=== PATIENT | female | born 2000 | race Caucasian/White ===

== ENCOUNTER 2022-06-07 02:10 | Emergency (ER) | payer BC ==
[~2022-06-07] VITALS: Ht 165.1 cm; Wt 59.1 kg
[2022-06-07 02:15] VITALS: TEMP 97.1
[2022-06-07 02:47] LABS: STREP SCREEN NEGATIVE
[2022-06-07] MEDS ORDERED: PRELONE15 MG/5 ML PO (03:27)
[2022-06-07 03:28] VITALS: BP 115/78; PULSE 76
== END 2022-06-07 03:38 | disposition home or self-care (01) ==
LOC: COL.ER 02:10
PROVIDERS: Emergency Medicine
DX: T78.40XA Allergy, unspecified, initial encounter (principal); Z20.822 Contact with and (suspected) exposure to COVID-19
CPT/HCPCS: J7512